=== PATIENT | male | born 1965 | race African-American/Black ===

== ENCOUNTER 2019-03-01 20:46 | Emergency (ER) | payer MEDICAID, OTHER ==
[~2019-03-01] VITALS: Ht 180.3 cm; Wt 81.6 kg
--- NOTE | 2019-03-01 22:07 | NUR ---
CALLED FOR PT. NO RESPONSE
--- NOTE | 2019-03-01 22:17 | NUR ---
BIBS. C/O "HAVING RT KNEE PAIN FOR X2 WEEKS. DX ARTHRITIS AT [facility], TAKING IBUPROFEN W/ NO RELIEF IN PAIN" VSS. AMBULATORY. -SOB -N/V -DIZZY
[2019-03-01] MEDS ORDERED: IBUPROFEN 600 MG TABLET PO ONE (22:51)
[2019-03-01 22:52] LABS: BASOPHILS % (AUTO) 0.8 % (0.0-2.0); EOSINOPHILS % (AUTO) 2.2 % (0.0-6.0); HEMATOCRIT 38 % (39-51); HEMOGLOBIN 12.9 g/dL (13.5-17.5); LYMPHOCYTES # (AUTO) 1.2 /CMM (0.8-4.8); LYMPHOCYTES % (AUTO) 32.4 % (20.0-44.0); MEAN CORPUSCULAR HGB CONC 34 g/dl (31.0-36.0); MEAN CORPUSCULAR VOLUME 99 fL (80-96); MONOCYTES # (AUTO) 0.4 /CMM (0.1-1.30); MONOCYTES % (AUTO) 12.1 % (2.0-12.0); NEUTROPHILS # (AUTO) 1.9 /CMM (1.8-8.9); NEUTROPHILS % (AUTO) 52.5 % (43.0-81.0); PLATELET COUNT (AUTO) 181 /CMM (150-450); RED BLOOD CELL COUNT(AUTO) 3.85 MIL/uL (4.5-6.0); WHITE BLOOD COUNT (AUTO) 3.7 K/uL (4.3-11.0)
[2019-03-01] MEDS: IBUPROFEN 600 MG TABLET PO ONE (22:55)
[2019-03-01 23:02] LABS: CALCIUM, SERUM 8.4 mg/dL (8.5-10.1); CREATININE 1.4 mg/dL (0.6-1.3); POTASSIUM 4.6 mmol/L (3.5-5.1)
[2019-03-01 23:08] LABS: ALBUMIN 3.3 g/dL (3.4-5.0); BILIRUBIN,TOTAL 0.4 mg/dL (0.2-1.0); TOTAL PROTEIN, SERUM 6.7 g/dL (6.4-8.2)
[2019-03-01 23:24] LABS: URIC ACID 5.5 mg/dL (2.6-7.2)
[2019-03-01 23:58] VITALS: BP 122/71
== END 2019-03-01 23:58 | disposition home or self-care (01) ==
LOC: ER 20:48
DX: M25.461 Effusion, right knee (principal); M54.30 Sciatica, unspecified side; F10.10 Alcohol abuse, uncomplicated; F17.200 Nicotine dependence, unspecified, uncomplicated; Y90.9 Presence of alcohol in blood, level not specified; Z71.6 Tobacco abuse counseling
CPT/HCPCS: 36415; 80053-TC; 84550-TC; 85025-TC; 85610-TC

== ENCOUNTER 2019-06-21 17:42 | Emergency (ER) | payer OTHER ==
[~2019-06-21] VITALS: Ht 180.3 cm; Wt 81.6 kg
[2019-06-21 17:51] VITALS: BP 108/70
--- NOTE | 2019-06-21 17:51 | NUR ---
AT BEDSIDE FOR EVAL.
[2019-06-21] MEDS ORDERED: TDAP [DIPH/PERTUSSIS/TET] 0.5 ML VIAL IM ONE ×2 (17:54→18:00)
--- NOTE | 2019-06-21 17:59 | NUR ---
ABE MARCIAL AT BEDSIDE FOR WOUNDCARE
[2019-06-21] MEDS ORDERED: BACITRACIN ZINC OINT PACKET 1 EA PACKET TP ONE (18:00)
== END 2019-06-21 18:04 | disposition home or self-care (01) ==
LOC: ER 17:50
DX: S91.011A Laceration without foreign body, right ankle, initial encounter (principal); F17.200 Nicotine dependence, unspecified, uncomplicated; W22.8XXA Striking against or struck by other objects, initial encounter; Y93.89 Activity, other specified; Y92.89 Other specified places as the place of occurrence of the external cause; Y99.8 Other external cause status
CPT/HCPCS: 90715

== ENCOUNTER → 2019-10-31 | Emergency (ER) | payer OTHER ==
--- NOTE | 2019-10-31 16:30 | NUR ---
PT REFUSED TO BE TRIAGED
== END | disposition left against medical advice (07) ==
LOC: ER 16:19
DX: Z53.21 Procedure and treatment not carried out due to patient leaving prior to being seen by health care provider (principal)

== ENCOUNTER 2019-11-01 18:30 | Emergency (ER) | payer OTHER ==
[~2019-11-01] VITALS: Ht 180.3 cm; Wt 81.6 kg
[2019-11-01 18:40] VITALS: BP 126/53
--- NOTE | 2019-11-01 18:40 | NUR ---
CAME IN FOR L KNEE PAIN AND SWELLING X 1 MONTH, TO ER BED 10, HOOKED TO MONITOR, CHANGED TO HOSP GOWN, WARM BLANKET PROVIDED, PATIENT AAOx4 , BREATHING EVEN AND UNLABORED, AWAITING MD KNAPP.
--- NOTE | 2019-11-01 19:13 | NUR ---
REPORT GIVEN TO TONY DE GUZMAN FOR RADHA
[2019-11-01] MEDS ORDERED: IBUPROFEN 400 MG TABLET ONE (19:14)
--- NOTE | 2019-11-01 19:18 | NUR ---
XRAY AT BEDSIDE.
[2019-11-01] MEDS ORDERED: IBUPROFEN 400 MG TABLET PO ONE (19:30)
--- NOTE | 2019-11-01 20:20 | NUR ---
Patient discharged to home in stable condition. Written and verbal after care instructions given. Patient verbalizes understanding of instruction.
== END 2019-11-01 20:20 | disposition home or self-care (01) ==
LOC: ER 18:30
DX: M25.562 Pain in left knee (principal); F17.210 Nicotine dependence, cigarettes, uncomplicated
CPT/HCPCS: 73564-TC

== ENCOUNTER 2020-04-17 15:24 | Emergency (ER) | payer OTHER ==
[~2020-04-17] VITALS: Ht 180.3 cm; Wt 81.6 kg
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
--- NOTE | 2020-04-17 16:20 | NUR ---
DCPatient discharged to home in stable condition. Written and verbal after care instructions given. Patient verbalizes understanding of instruction.
[2020-04-17 16:21] VITALS: BP 121/77
== END 2020-04-17 16:23 | disposition home or self-care (01) ==
LOC: ER 15:33
DX: S40.861A Insect bite (nonvenomous) of right upper arm, initial encounter (principal); L08.9 Local infection of the skin and subcutaneous tissue, unspecified; F17.200 Nicotine dependence, unspecified, uncomplicated; W57.XXXA Bitten or stung by nonvenomous insect and other nonvenomous arthropods, initial encounter; Y93.89 Activity, other specified; Y92.89 Other specified places as the place of occurrence of the external cause; Y99.8 Other external cause status

== ENCOUNTER 2020-11-01 19:36 | Emergency (ER) | payer OTHER ==
[~2020-11-01] VITALS: Ht 180.3 cm; Wt 81.6 kg
[2020-11-01 19:52] VITALS: BP 118/78
[2020-11-01] MEDS ORDERED: IBUP-1957 PO (20:11)
[2020-11-01] MEDS ORDERED: DICL20GE TOP (20:11)
== END 2020-11-01 20:31 | disposition home or self-care (01) ==
LOC: ER 19:38
DX: M25.561 Pain in right knee (principal); M25.562 Pain in left knee; F17.210 Nicotine dependence, cigarettes, uncomplicated; Z79.899 Other long term (current) drug therapy

== ENCOUNTER 2021-03-15 11:44 | Emergency (ER) | payer OTHER ==
[~2021-03-15] VITALS: Ht 180.3 cm; Wt 81.6 kg
[~2021-03-15 11:44] MED LIST: DICL20GE TOP; IBUP-1957 PO
--- NOTE | 2021-03-15 11:58 | NUR ---
SEEN AND EXAMINED BY .
--- NOTE | 2021-03-15 12:10 | NUR ---
IV LINE ESTABLISHED BLOOD DRAWN AND SENT TO LAB.
[2021-03-15] MEDS ORDERED: KETOROLAC TROMETHAMINE 15 MG/ML VIAL ONE (12:14)
--- NOTE | 2021-03-15 12:15 | NUR ---
pt 55 yrs male came from c/o rt [facility] 02/04 pain for 3 day awake and alert x4 no n/v
[2021-03-15 12:21] LABS: EOSINOPHILS % (AUTO) 2.4 % (0.0-6.0); HEMATOCRIT 43 % (39-51); HEMOGLOBIN 14.4 g/dL (13.5-17.5); LYMPHOCYTES # (AUTO) 1.3 K/uL (0.8-4.8); MEAN CORPUSCULAR HGB CONC 33 g/dl (31.0-36.0); MEAN CORPUSCULAR VOLUME 99 fL (80-96); MONOCYTES # (AUTO) 0.4 K/uL (0.1-1.30); MONOCYTES % (AUTO) 8.4 % (2.0-12.0); NEUTROPHILS # (AUTO) 2.6 K/uL (1.8-8.9); NEUTROPHILS % (AUTO) 59.2 % (43.0-81.0); PLATELET COUNT (AUTO) 231 K/uL (150-450); RED BLOOD CELL COUNT(AUTO) 4.35 MIL/uL (4.5-6.0); WHITE BLOOD COUNT (AUTO) 4.5 K/uL (4.3-11.0)
[2021-03-15] MEDS ORDERED: KETOROLAC TROMETHAMINE INJ 30 MG/ML VIAL IV ONE (12:30)
[2021-03-15 12:48] LABS: ALANINE AMINOTRANSFERASE 38 U/L (12-78); ALBUMIN 3.5 g/dL (3.4-5.0); ALKALINE PHOSPHATASE 64 U/L (46-116); ASPARTATE AMINOTRANSFERASE 29 U/L (15-37); BILIRUBIN,DIRECT 0.1 mg/dL (0.0-0.2); BILIRUBIN,TOTAL 0.3 mg/dL (0.2-1.0); CALCIUM, SERUM 8.3 mg/dL (8.5-10.1); CARBON DIOXIDE 26 mmol/L (21-32); CHLORIDE 108 mmol/L (98-107); CREATININE 1.3 mg/dL (0.6-1.3); GLUCOSE 84 mg/dL (74-106); LIPASE 154 U/L (73-393); POTASSIUM 3.9 mmol/L (3.5-5.1); SODIUM SERUM 143 mmol/L (136-145); TOTAL PROTEIN, SERUM 7.1 g/dL (6.4-8.2); UREA NITROGEN, BLOOD 9 mg/dL (7-18)
[2021-03-15] MEDS ORDERED: CYCL5TAB PO (13:43)
[2021-03-15] MEDS ORDERED: IBUP-1955 PO (13:43)
[2021-03-15] MEDS ORDERED: OXYC5CAP18 PO (13:43)
[2021-03-15 13:51] LABS: BILIRUBIN,URINE Negative (NEGATIVE); COLOR,URINE YELLOW (YELLOW); LEUKOCYTE ESTERASE ,URINE Negative (NEGATIVE); NITRITE, URINE Negative (NEGATIVE); PROTEIN,URINE Negative (NEGATIVE); UGLUCOSE Negative (NEGATIVE); UROBILINOGEN,URINE 0.2 EU/dL (0.2)
[2021-03-15 14:10] LABS: RBC,URINE 0-2 /HPF (0-2)
[2021-03-15 14:11] LABS: BACTERIA,URINE Rare /HPF (None Seen); SQUAMOUS EPITHELIAL CELL,UR Rare /HPF (None Seen); WBC,URINE 0-2 /HPF (0-3)
--- NOTE | 2021-03-15 14:16 | NUR ---
IV removed. Catheter intact and site benign. Pressure and 4x4 applied to site. No bleeding noted. Patient discharged to home in stable condition. Written and verbal after care instructions given. Patient verbalizes understanding of instruction.
[2021-03-15 14:17] VITALS: BP 122/63
== END 2021-03-15 14:18 | disposition home or self-care (01) ==
LOC: ER 11:51
DX: N20.0 Calculus of kidney (principal); F17.200 Nicotine dependence, unspecified, uncomplicated; Z79.899 Other long term (current) drug therapy
CPT/HCPCS: 36415; 74176; 80048; 80076; 81001; 83605; 83690; 84484; 85025; 85730; 96374; 99284; J1885

== ENCOUNTER 2021-03-30 19:05 | Emergency (ER) | payer OTHER ==
[~2021-03-30] VITALS: Ht 180.3 cm; Wt 81.6 kg
[~2021-03-30 19:05] MED LIST changes: +CYCL5TAB PO; +IBUP-1955 PO; +OXYC5CAP18 PO
--- NOTE | 2021-03-30 20:08 | NUR ---
URINE SPECIMEN COLLECTED AND SENT TO LAB.
[2021-03-30 20:58] LABS: BASOPHILS # (AUTO) 0.1 K/uL (0.0-0.2); BASOPHILS % (AUTO) 1.2 % (0.0-2.0); EOSINOPHILS % (AUTO) 2.4 % (0.0-6.0); HEMATOCRIT 44 % (39-51); HEMOGLOBIN 14.6 g/dL (13.5-17.5); LYMPHOCYTES # (AUTO) 1.8 K/uL (0.8-4.8); LYMPHOCYTES % (AUTO) 36.9 % (20.0-44.0); MEAN CORPUSCULAR HGB CONC 33 g/dl (31.0-36.0); MEAN CORPUSCULAR VOLUME 100 fL (80-96); MONOCYTES # (AUTO) 0.5 K/uL (0.1-1.30); MONOCYTES % (AUTO) 10.7 % (2.0-12.0); NEUTROPHILS # (AUTO) 2.3 K/uL (1.8-8.9); NEUTROPHILS % (AUTO) 48.8 % (43.0-81.0); PLATELET COUNT (AUTO) 215 K/uL (150-450); RED BLOOD CELL COUNT(AUTO) 4.41 MIL/uL (4.5-6.0); WHITE BLOOD COUNT (AUTO) 4.8 K/uL (4.3-11.0)
[2021-03-30 21:03] LABS: CALCIUM, SERUM 8.5 mg/dL (8.5-10.1); CREATININE 1.4 mg/dL (0.6-1.3); POTASSIUM 3.9 mmol/L (3.5-5.1)
[2021-03-30 21:18] LABS: ALBUMIN 3.7 g/dL (3.4-5.0); BILIRUBIN,DIRECT 0.2 mg/dL (0.0-0.2); BILIRUBIN,TOTAL 0.7 mg/dL (0.2-1.0); TOTAL PROTEIN, SERUM 7.5 g/dL (6.4-8.2)
--- NOTE | 2021-03-30 21:29 | NUR ---
Patient discharged to home in stable condition. Written and verbal after care instructions given. Patient verbalizes understanding of instruction.
[2021-03-30 21:30] VITALS: BP 120/79
== END 2021-03-30 21:40 | disposition home or self-care (01) ==
LOC: ER 19:09
DX: R10.9 Unspecified abdominal pain (principal); F17.200 Nicotine dependence, unspecified, uncomplicated; Z79.899 Other long term (current) drug therapy
CPT/HCPCS: 36415; 76770-TC; 80048-TC; 80076-TC; 85025-TC

== ENCOUNTER 2021-10-29 10:24 | Emergency (ER) | payer OTHER ==
[~2021-10-29] VITALS: Ht 180.3 cm; Wt 81.6 kg
--- NOTE | 2021-10-29 10:35 | NUR ---
recived pt 56 yrs male waking in c/o lower back pain dineses hx of trama MOVING all extrmity upper and lower no weekness
--- NOTE | 2021-10-29 10:45 | NUR ---
seeen by DR. RANGEL EXAMIN PT ORDER WAS GIVEN
[2021-10-29] MEDS ORDERED: CYCLOBENZAPRINE 10 MG TABLET PO ONE (11:00)
[2021-10-29] MEDS ORDERED: LIDOCAINE 5% (PATCH) 1 EA PATCH TP SCH (11:00)
[2021-10-29] MEDS ORDERED: ACETAMINOPHEN ES 500 MG TABLET PO ONE (11:00)
[2021-10-29] MEDS ORDERED: ACETAMINOPHEN ES 500 MG TABLET ONE (11:04)
[2021-10-29] MEDS ORDERED: CYCLOBENZAPRINE 10 MG TABLET ONE (11:04)
--- NOTE | 2021-10-29 11:38 | NUR ---
LIdoderm patch 5% appled in lower back for controled pain
--- NOTE | 2021-10-29 11:43 | NUR ---
c/o pain when he move got worse 02/04
[2021-10-29] MEDS ORDERED: predniSONE 20 MG TABLET PO ONE (12:30)
[2021-10-29] MEDS ORDERED: LIDO30AD10 TP (12:40)
[2021-10-29] MEDS ORDERED: CYCL10TA9 PO (12:40)
[2021-10-29] MEDS ORDERED: IBUP-1957 PO (12:40)
[2021-10-29] MEDS ORDERED: ACET-2605 PO (12:40)
[2021-10-29] MEDS ORDERED: predniSONE 20 MG TABLET ONE (12:43)
--- NOTE | 2021-10-29 13:13 | NUR ---
D/C instraction and rx given to pt and fallow care fally and verblized understood d/c home pt able to amblate walking with miller gaite pain 0-2/10 tolorated the pain d/c home stable condition
[2021-10-29 13:28] VITALS: BP 132/76
== END 2021-10-29 13:29 | disposition home or self-care (01) ==
LOC: ER 10:29
DX: M54.42 Lumbago with sciatica, left side (principal); F17.200 Nicotine dependence, unspecified, uncomplicated; Z87.442 Personal history of urinary calculi; Z87.39 Personal history of other diseases of the musculoskeletal system and connective tissue; Z79.899 Other long term (current) drug therapy
CPT/HCPCS: 99285; J7512

== ENCOUNTER 2022-03-28 15:22 | Emergency (ER) | payer OTHER ==
[~2022-03-28] VITALS: Ht 180.3 cm; Wt 81.6 kg
[~2022-03-28 15:22] MED LIST changes: +ACET-2605 PO; +CYCL10TA9 PO; +LIDO30AD10 TP
[2022-03-28 15:56] VITALS: BP 136/88
[2022-03-28] MEDS ORDERED: AMOX500C2 PO (16:20)
[2022-03-28] MEDS ORDERED: ACETAMINOPHEN ES 500 MG TABLET ONE (16:27)
[2022-03-28] MEDS ORDERED: ACETAMINOPHEN ES 500 MG TABLET PO ONE (16:30)
--- NOTE | 2022-03-28 16:31 | NUR ---
Patient discharged to home in stable condition. Written and verbal after care instructions given. Patient verbalizes understanding of instruction.
== END 2022-03-28 16:31 | disposition home or self-care (01) ==
LOC: ER 15:24
DX: K02.9 Dental caries, unspecified (principal); F17.200 Nicotine dependence, unspecified, uncomplicated; Z79.899 Other long term (current) drug therapy

== ENCOUNTER 2022-05-03 17:17 | Emergency (ER) | payer OTHER ==
[~2022-05-03] VITALS: Ht 180.3 cm; Wt 81.6 kg
[~2022-05-03 17:17] MED LIST changes: +AMOX500C2 PO
--- NOTE | 2022-05-03 17:20 | NUR ---
BIBS C/O COUGH, CONGESTION, AND CHILLS SINCE YESTERDAY PT HAS A FEVER OF 100.4 UPON ARRIVAL. AWAITING MD ORDERS.
[2022-05-03] MEDS ORDERED: IBUPROFEN 600 MG TABLET ONE (18:14)
[2022-05-03] MEDS ORDERED: ACETAMINOPHEN ES 500 MG TABLET ONE (18:14)
--- NOTE | 2022-05-03 18:19 | NUR ---
X RAY COLLECTED AND SENT
--- NOTE | 2022-05-03 18:21 | NUR ---
RAPID COVID AND FLU COLLECTED AND SENT
[2022-05-03] MEDS ORDERED: ACETAMINOPHEN ES 500 MG TABLET PO ONE (18:30)
[2022-05-03] MEDS ORDERED: IBUPROFEN 600 MG TABLET PO ONE (18:30)
[2022-05-03] MEDS ORDERED: IBUP-1953 PO ×3 (19:32→22:47)
[2022-05-03] MEDS ORDERED: AZIT250T PO ×2 (19:32→21:43)
--- NOTE | 2022-05-03 19:45 | NUR ---
Patient discharged to home in stable condition. Written and verbal after care instructions given. Patient verbalizes understanding of instruction.
[2022-05-03 19:46] VITALS: BP 115/72
[2022-05-03] MEDS ORDERED: AZIT250T13 PO (22:47)
== END 2022-05-03 19:46 | disposition home or self-care (01) ==
LOC: ER 17:20
DX: J40 Bronchitis, not specified as acute or chronic (principal); Z20.822 Contact with and (suspected) exposure to COVID-19; F17.210 Nicotine dependence, cigarettes, uncomplicated
CPT/HCPCS: 99284; 71045; 87426; 99406; 87804; C9803

== ENCOUNTER 2023-04-19 13:48 | Emergency (ER) | payer OTHER ==
[~2023-04-19] VITALS: Ht 180.3 cm; Wt 82.1 kg
[~2023-04-19 13:48] MED LIST changes: +AZIT250T PO; +AZIT250T13 PO; +IBUP-1953 PO
[2023-04-19] MEDS ORDERED: CYCLOBENZAPRINE 10 MG TABLET ONE (14:56)
[2023-04-19] MEDS ORDERED: ACETAMINOPHEN ES 500 MG TABLET ONE (14:56)
[2023-04-19] MEDS: CYCLOBENZAPRINE 10 MG TABLET PO ONE (15:03)
[2023-04-19] MEDS ORDERED: ACET500C4 PO (15:04)
[2023-04-19] MEDS: ACETAMINOPHEN ES 500 MG TABLET PO ONE (15:04)
[2023-04-19] MEDS ORDERED: CYCL10TA9 PO (15:04)
[2023-04-19] MEDS ORDERED: IBUP-1955 PO (15:04)
[2023-04-19 15:14] VITALS: BP 113/68; TEMP 98.4; O2SAT 100
== END 2023-04-19 15:14 | disposition home or self-care (01) ==
LOC: ER 13:50
DX: M62.830 Muscle spasm of back (principal); M54.50 Low back pain, unspecified; F17.200 Nicotine dependence, unspecified, uncomplicated

== ENCOUNTER 2024-01-19 13:47 | Emergency (ER) | payer OTHER ==
[~2024-01-19] VITALS: Ht 180.3 cm; Wt 82.1 kg
[~2024-01-19 13:47] MED LIST changes: +ACET500C4 PO; +METH-647 PO
[2024-01-19] MEDS ORDERED: KETOROLAC TROMETHAMINE 15 MG/ML VIAL ONE (14:37)
[2024-01-19] MEDS ORDERED: dexAMETHasone 4 MG TABLET ONE (14:38)
[2024-01-19] MEDS ORDERED: CYCLOBENZAPRINE 10 MG TABLET ONE (14:38)
[2024-01-19] MEDS: KETOROLAC TROMETHAMINE 15 MG/ML VIAL IM ONE (14:44)
[2024-01-19] MEDS: dexAMETHasone 1 MG TABLET PO ONE (14:44)
[2024-01-19] MEDS: CYCLOBENZAPRINE 10 MG TABLET PO ONE (14:44)
[2024-01-19] MEDS ORDERED: IBUP-1955 PO (15:43)
[2024-01-19] MEDS ORDERED: METH-647 PO (15:43)
[2024-01-19] MEDS ORDERED: ACET-2605 PO (15:43)
[2024-01-19 15:58] VITALS: BP 137/74; TEMP 98.7; O2SAT 100
== END 2024-01-19 15:59 | disposition home or self-care (01) ==
LOC: ER 13:52
DX: S63.8X2A Sprain of other part of left wrist and hand, initial encounter (principal); M54.2 Cervicalgia; R51.9 Headache, unspecified; F17.200 Nicotine dependence, unspecified, uncomplicated; W01.0XXA Fall on same level from slipping, tripping and stumbling without subsequent striking against object, initial encounter; Y93.89 Activity, other specified; Y92.89 Other specified places as the place of occurrence of the external cause; Y99.8 Other external cause status
CPT/HCPCS: 99283; 96372; 73130; J8540; J1885

== ENCOUNTER 2024-05-03 17:56 | Emergency (ER) | payer OTHER ==
[~2024-05-03] VITALS: Ht 180.3 cm; Wt 81.6 kg
[2024-05-03 18:28] LABS: HEMOGLOBIN 14.9 g/dL (13.5-17.5); MONOCYTES # (AUTO) 0.4 K/uL (0.1-1.30); NEUTROPHILS # (AUTO) 1.8 K/uL (1.8-8.9)
[2024-05-03 18:30] LABS: BASOPHILS % (AUTO) 0.7 % (0.0-2.0); EOSINOPHILS % (AUTO) 1.4 % (0.0-6.0); HEMATOCRIT 45 % (39-51); LYMPHOCYTES # (AUTO) 1.3 K/uL (0.8-4.8); LYMPHOCYTES % (AUTO) 36.5 % (20.0-44.0); MEAN CORPUSCULAR HEMOGLOBIN 33 PG (26.0-33.0); MEAN CORPUSCULAR HGB CONC 34 g/dl (31.0-36.0); MEAN CORPUSCULAR VOLUME 100 fL (80-96); MONOCYTES % (AUTO) 10.5 % (2.0-12.0); NEUTROPHILS % (AUTO) 50.9 % (43.0-81.0); PLATELET COUNT (AUTO) 187 K/uL (150-450); RED BLOOD CELL COUNT(AUTO) 4.47 MIL/uL (4.5-6.0); RED CELL DISTRIBUTION WIDTH 13.9 % (11.5-15.0); WHITE BLOOD COUNT (AUTO) 3.6 K/uL (4.3-11.0)
[2024-05-03 18:35] LABS: CALCIUM, SERUM 8.9 mg/dL (8.5-10.1); CARBON DIOXIDE 29 mmol/L (21-32); CHLORIDE 103 mmol/L (98-107); CREATININE 1.3 mg/dL (0.6-1.3); GLUCOSE 81 mg/dL (74-106); POTASSIUM 3.9 mmol/L (3.5-5.1); SODIUM SERUM 138 mmol/L (136-145); UREA NITROGEN, BLOOD 13 mg/dL (7-18)
[2024-05-03] MEDS: KETOROLAC TROMETHAMINE 15 MG/ML VIAL IM ONE (19:30)
[2024-05-03] MEDS ORDERED: CYCL5TAB PO (19:45)
[2024-05-03] MEDS ORDERED: IBUP-1955 PO (19:45)
[2024-05-03] MEDS ORDERED: KETOROLAC TROMETHAMINE 15 MG/ML VIAL ONE (19:56)
[2024-05-03 20:01] VITALS: BP 123/78; TEMP 98.2; O2SAT 100
== END 2024-05-03 20:01 | disposition home or self-care (01) ==
LOC: ER 18:09
DX: M54.6 Pain in thoracic spine (principal); F17.200 Nicotine dependence, unspecified, uncomplicated; Z79.1 Long term (current) use of non-steroidal anti-inflammatories (NSAID)
CPT/HCPCS: 99285; 71045; 99406; 96372; 93005; 85025; 80048; 36415; 84484 ×2; J1885